=== PATIENT | male | born 1950 | race Asian ===

== ENCOUNTER → 2018-05-22 | Outpatient (CLI) | payer OTHER ==
[2018-05-26 06:42] LABS: QUANTIF MITOGEN-NIL 7.96 IU/ML; QUANTIFERON POSITIVE (NEGATIVE); QUANTIFERON NIL 0.02 IU/ML
== END | disposition home or self-care (01) ==
LOC: C.LABSPEC 14:05
PROVIDERS: ATTEND Family Medicine
DX: R76.11 Nonspecific reaction to tuberculin skin test without active tuberculosis (principal)